=== PATIENT | female | born 1950 | race Two or more races ===

== ENCOUNTER 2025-09-03 13:27 | Emergency (ER) | payer OTHER ==
[~2025-09-03] VITALS: Ht 157.5 cm; Wt 73.0 kg
[2025-09-03 13:39] VITALS: BP 153/83; O2SAT 100
[2025-09-03] MEDS ORDERED: ACID REDUCER20 M1 PO (13:41)
[2025-09-03] MEDS ORDERED: PEPCID AC20 MG PO (13:41)
[2025-09-03] MEDS ORDERED: COZAAR100 MG PO (13:41)
[2025-09-03] MEDS ORDERED: SYNTHROID75 MCG PO (13:41)
[2025-09-03] MEDS ORDERED: HYDROXYCHLOROQ200 MG PO (13:46)
[2025-09-03] MEDS ORDERED: KETOROLAC TROMETHAMINE 30 MG VIAL IM ONE (15:00)
[2025-09-03] MEDS ORDERED: KETOROLAC TROMETHAMINE 30 MG VIAL ONE (16:50)
[2025-09-03 17:22] LABS: BASO % 1.1 % (0.1-1.2); EOS # 0.22 (0.04-0.54); EOS % 3.0 % (0.7-7.0); LYMPH # 2.15 (1.18-3.74); LYMPH % 29.1 % (19.3-53.1); MEAN PLATELET VOLUME 9.00 fl (9.4-12.4); MONO # 0.59 (0.24-0.82); MONO % 8.0 % (4.7-12.5); NEUT # 4.33 (1.56-6.13); NEUT % 58.7 % (34.0-71.1); RED CELL DISTRIBUTION WIDTH 13.9 % (11.6-14.4)
[2025-09-03 17:52] LABS: ALT/SGPT 26.0 U/L (12-78); AST/SGOT 22.0 U/L (15-37); BILIRUBIN TOTAL 0.36 mg/dL (0.3-1.2); BUN CREA RATIO 27.0 (7.0-25.0); CREATININE SERUM 1.09 mg/dL (0.55-1.02); GFR 49.34; GLOBULINA 3.7 G/DL (2.4-3.5); GLUCOSE FASTING 88.0 mg/dL (65-100); OSMOLALITY SERUM 290.0 MOSM/KG (275-295)
== END 2025-09-03 21:32 | disposition home or self-care (01) ==
LOC: ER 13:28
PROVIDERS: General Practice
DX: M94.0 Chondrocostal junction syndrome [Tietze] (principal); R51.9 Headache, unspecified; R07.89 Other chest pain; I10 Essential (primary) hypertension; E03.8 Other specified hypothyroidism
CPT/HCPCS: 36415; 70450; 71046; 96372; 99284; J1885